=== PATIENT | female | born 1965 | race Hispanic/Latino ===

== ENCOUNTER → 2020-04-08 | Outpatient (CLI) | payer BC | LOC: MAMMO 15:25 | PROVIDERS: ATTEND Internal Medicine | DX: Z12.31 Encounter for screening mammogram for malignant neoplasm of breast (principal) | CPT/HCPCS: 77067 ==

== ENCOUNTER → 2022-04-11 | Outpatient (CLI) | payer OTHER | LOC: MAMMO 14:59 | PROVIDERS: ATTEND Internal Medicine | DX: Z12.31 Encounter for screening mammogram for malignant neoplasm of breast (principal) | CPT/HCPCS: 77067 ==

== ENCOUNTER → 2023-10-29 | Outpatient (REF) | payer OTHER | LOC: MAMMO 13:59 | PROVIDERS: ATTEND Internal Medicine | DX: Z12.31 Encounter for screening mammogram for malignant neoplasm of breast (principal) | CPT/HCPCS: 77067 ==